=== PATIENT | female | born 1945 | race American Indian/Alaskan Native ===

== ENCOUNTER 2020-03-17 14:06 | Observation (INO) | payer MEDICARE ==
[2020-03-17] MEDS ORDERED: SODIUM CHLORIDE 0.9% 1000 ML 1,000 ML IV ONE (15:06)
[2020-03-17 15:37] LABS: Basophils % (Auto) 0.2 % (0.0-1.8); Eosinophils % (Auto) 0.1 % (0.0-4.3); Hemoglobin 12.9 gm/dl (10.1-14.3); Lymphocytes % (Auto) 7.2 % (13.4-35.0); Mean Corpuscular HGB Conc 34 % (30-34); Mean Corpuscular Volume 83 fl (79-97); Monocytes % (Auto) 6.7 % (0.0-7.3); Platelet Count 298 K/mm3 (140-440); Red Blood Count 4.59 M/mm3 (3.65-5.03); Red Cell Distribution Width 14.2 % (13.2-15.2)
--- NOTE | 2020-03-17 15:45 | XRay Report ---
CHEST 1 VIEW 03/17/2020 3:29 PM INDICATION / CLINICAL INFORMATION: weakness. COMPARISON: None available. FINDINGS: SUPPORT DEVICES: None. HEART / MEDIASTINUM: No significant abnormality. LUNGS / PLEURA: No significant pulmonary or pleural abnormality. No pneumothorax. ADDITIONAL FINDINGS: No significant additional findings. IMPRESSION: 1. No acute findings. Signer Name: Tristen Burgess MD Signed: 03/17/2020 3:40 PM Workstation Name: [email or web address] [id number]
[2020-03-17 16:02] LABS: Blood Urea Nitrogen 19 mg/dL (7-17); Calcium 8.9 mg/dL (8.4-10.2); Hemolysis Index 43
[2020-03-17 16:13] LABS: BUN/Creatinine Ratio 27
[2020-03-17] MEDS ORDERED: POTASSIUM CHLORIDE ER 20 MEQ TAB PO ONE (16:25)
[2020-03-17 17:08] LABS: Bacteria,Urine 1+ /HPF (Negative); Bilirubin,Urine NEG (Negative); Blood,Urine SM (Negative); Color,Urine Yellow (Yellow); Hyaline Casts,Urine 4 /LPF; Mucus,Urine 3+ /HPF
[2020-03-17 17:09] LABS: WBC,Urine > 182.0 /HPF (0.0-6.0)
--- NOTE | 2020-03-17 17:44 | Emergency Department Report ---
ED General Adult HPI - General Chief complaint: Medical Clearance Stated complaint: Hypotension Time Seen by Provider: 03/17/20 14:28 Source: EMS Mode of arrival: Stretcher Limitations: Altered Mental Status - History of Present Illness Initial comments: 74-year-old female, history of CVA with left-sided weakness, dementia, diabetes, orthostatic hypotension, presents to the ED for evaluation. [facility] with reported tachycardia and hypotension. [facility] paperwork states that patient has been exposed to COVID. Vitals are currently normal here in ED. Patient is nonverbal, but shakes her head yes and no. Patient denies any chest pain, shortness of breath, vomiting, abdominal pain, diarrhea, cough. Answers may not be reliable given history of dementia. -: This afternoon Severity scale (0 -10): 0 Associated Symptoms: denies other symptoms - Related Data Allergies Allergy/AdvReac Type Severity Reaction Status Date / Time No Known Allergies Allergy Unverified 03/17/20 18:03 ED Review of Systems ROS: Stated complaint: COVID 19 POSITIVE Other details as noted in HPI Comment: All other systems reviewed and negative Respiratory: denies: shortness of breath Cardiovascular: denies: chest pain Gastrointestinal: denies: abdominal pain ED Physical Exam - General Limitations: Altered Mental Status General appearance: alert, in no apparent distress - Head Head exam: Present: atraumatic, normocephalic - Eye Eye exam: Present: normal appearance, EOMI - ENT ENT exam: Present: mucous membranes moist - Neck Neck exam: Present: normal inspection - Respiratory Respiratory exam: Present: normal lung sounds bilaterally. Absent: respiratory distress - Cardiovascular Cardiovascular Exam: Present: normal rhythm, tachycardia - GI/Abdominal GI/Abdominal exam: Present: soft. Absent: distended, tenderness - Extremities Exam Extremities exam: Present: normal inspection - Neurological Exam Neurological exam: Present: alert, other (Shakes head yes and no; patient is nonverbal) - Psychiatric Psychiatric exam: Present: normal affect, normal mood - Skin Skin exam: Present: warm, dry, intact, normal color ED Course Vital Signs 03/17/20 03/17/20 03/17/20 14:45 14:53 15:00 Temperature 98.3 F Pulse Rate 110 H 78 109 H Respiratory 15 16 22 Rate Blood Pressure Blood Pressure 144/74 [Right] O2 Sat by Pulse 100 98 99 Oximetry 03/17/20 03/17/20 03/17/20 15:16 15:30 15:46 Temperature Pulse Rate 109 H 108 H 108 H Respiratory 15 12 14 Rate Blood Pressure Blood Pressure [Right] O2 Sat by Pulse 98 98 99 Oximetry 03/17/20 03/17/20 03/17/20 16:00 16:16 16:30 Temperature Pulse Rate 104 H 104 H 100 H Respiratory 17 25 H 20 Rate Blood Pressure Blood Pressure [Right] O2 Sat by Pulse 99 98 97 Oximetry 03/17/20 03/17/20 03/17/20 16:46 17:00 17:16 Temperature Pulse Rate 102 H 110 H 110 H Respiratory 24 19 14 Rate Blood Pressure Blood Pressure [Right] O2 Sat by Pulse 95 97 98 Oximetry 03/17/20 03/17/20 17:30 17:46 Temperature Pulse Rate 111 H 117 H Respiratory 12 15 Rate Blood Pressure 181/72 Blood Pressure [Right] O2 Sat by Pulse Oximetry ED Medical Decision Making - Lab Data Result diagrams: 03/17/20 15:18 03/17/20 15:18 - EKG Data -: EKG Interpreted by [place] EKG shows normal: sinus rhythm, axis, intervals, QRS complexes, ST-T waves Rate: tachycardia (rate 116) - Radiology Data Radiology results: report reviewed, image reviewed - Medical Decision Making 74-year-old female [facility] for hypotension and tachycardia. Patient has not been hypotensive here in the ED. Patient has been tachycardic here in the ED. Chest x-ray is negative for any acute findings. Patient does have elevated white count of 14.2. UA shows evidence of UTI with positive nit rite, greater than 182 WBCs, 1+ bacteria. Lactic acid only 2.1, however patient has been given 30/kg IV fluid bolus. Patient given Levaquin here in the ED. Urine culture ordered. Patient appears alert, in no distress. Will admit to hospitalist, Dr Powell, for further management. - Differential Diagnosis UTI, pneumonia, dehydration Critical care attestation.: If time is entered above; I have spent that time in minutes in the direct care of this critically ill patient, excluding procedure time. ED Disposition Clinical Impression: UTI (urinary tract infection), Hypokalemia, Sepsis Disposition: OP ADMIT IP TO THIS HOSP Is pt being admited?: Yes Condition: Stable Time of Disposition: 18:54
[2020-03-17] MEDS ORDERED: SODIUM CHLORIDE 0.9% 1000 ML IV SOLN IV ONE (18:48)
[2020-03-17] MEDS ORDERED: SODIUM CHLORIDE 0.9% 500 ML 500 ML ONE (19:34)
--- NOTE | 2020-03-18 08:14 | History and Physical Report ---
History of Present Illness Date of examination: 03/17/20 Date of admission: 03/17/20 18:56 Chief complaint: Low blood pressure as per [facility] History of present illness: 74-year-old female with history of cerebrovascular accident and left-sided weakness, dementia and diabetes [facility] for low blood pressure and fast heart rate. No fever. There is apparent exposure to cold. Patient does not have any cough constitutional no weight loss or weight gain no fever or chills. No shortness of breath or chest pain. In the emergency room her blood pressure was in the normal range. She was slightly tachycardic with a heart rate of 100 to 110. No temperature. Past History Past Medical History: diabetes, stroke (With left-sided weakness), other (Dementia) Past Surgical History: Other (Unavailable) Social history: full code, other (Lives in [facility]) Family history: hypertension Medications and Allergies Allergies Allergy/AdvReac Type Severity Reaction Status Date / Time No Known Allergies Allergy Unverified 03/17/20 18:03 Review of Systems All systems: negative Constitutional: weakness Breasts: no deferred Cardiovascular: no chest pain, no orthopnea, no palpitations Respiratory: no cough, no cough with sputum, no excessive sputum Gastrointestinal: no abdominal pain, no nausea, no vomiting Genitourinary Female: dysuria, urinary frequency, urgency, no dyspareunia, no dysmenorrhea Rectal: no pain Musculoskeletal: no neck stiffness, no neck pain, no shooting arm pain Integumentary: no rash, no pruritis, no redness Neurological: no seizures, no syncope Psychiatric: no anxiety, no memory loss, no change in sleep habits Endocrine: no cold intolerance, no heat intolerance, no polyphagia, no excessive thirst, no polydipsia Hematologic/Lymphatic: no easy bruising, no easy bleeding Allergic/Immunologic: no urticaria, no allergic rhinitis, no wheezing Exam - Constitutional Vitals: Temp Pulse Resp BP Pulse Ox 97.6 F 98 H 18 167/88 99 03/18/20 04:38 03/18/20 04:38 03/18/20 04:38 03/18/20 04:38 03/18/20 04:38 General appearance: Present: no acute distress, well-nourished - EENT Eyes: Present: PERRL ENT: hearing intact, clear oral mucosa - Neck Neck: Present: supple, normal ROM - Respiratory Respiratory effort: normal Respiratory: bilateral: CTA - Cardiovascular Rhythm: regular Heart Sounds: Present: S1 & S2. Absent: rub, click - Extremities Extremities: pulses symmetrical, No edema Peripheral Pulses: within normal limits - Abdominal General gastrointestinal: Present: soft, non-tender, non-distended, normal bowel sounds Female genitourinary: Present: normal - Integumentary Integumentary: Present: clear, warm, dry - Musculoskeletal Musculoskeletal: gait normal, strength equal bilaterally - Psychiatric Psychiatric: appropriate mood/affect, intact judgment & insight - Neurologic Neurologic: CNII-XII intact, moves all extremities Results - Labs CBC & Chem 7: 03/17/20 15:18 03/17/20 15:18 Labs: Laboratory Last Values WBC 14.2 K/mm3 (4.5-11.0) H 03/17/20 15:18 RBC 4.59 M/mm3 (3.65-5.03) 03/17/20 15:18 Hgb 12.9 gm/dl (10.1-14.3) 03/17/20 15:18 Hct 38.0 % (30.3-42.9) 03/17/20 15:18 MCV 83 fl (79-97) 03/17/20 15:18 MCH 28 pg (28-32) 03/17/20 15:18 MCHC 34 % (30-34) 03/17/20 15:18 RDW 14.2 % (13.2-15.2) 03/17/20 15:18 Plt Count 298 K/mm3 (140-440) 03/17/20 15:18 Lymph % (Auto) 7.2 % (13.4-35.0) L 03/17/20 15:18 [place] % (Auto) 6.7 % (0.0-7.3) 03/17/20 15:18 Eos % (Auto) 0.1 % (0.0-4.3) 03/17/20 15:18 Baso % (Auto) 0.2 % (0.0-1.8) 03/17/20 15:18 Lymph # 1.0 K/mm3 (1.2-5.4) L 03/17/20 15:18 [place] # 1.0 K/mm3 (0.0-0.8) H 03/17/20 15:18 Eos # 0.0 K/mm3 (0.0-0.4) 03/17/20 15:18 Baso # 0.0 K/mm3 (0.0-0.1) 03/17/20 15:18 Seg Neutrophils % 85.8 % (40.0-70.0) H 03/17/20 15:18 Seg Neutrophils # 12.2 K/mm3 (1.8-7.7) H 03/17/20 15:18 Sodium 138 mmol/L (137-145) 03/17/20 15:18 Potassium 3.3 mmol/L (3.6-5.0) L 03/17/20 15:18 Chloride 99.6 mmol/L (98-107) 03/17/20 15:18 Carbon Dioxide 25 mmol/L (22-30) 03/17/20 15:18 Anion Gap 17 mmol/L 03/17/20 15:18 BUN 19 mg/dL (7-17) H 03/17/20 15:18 Creatinine 0.7 mg/dL (0.6-1.2) 03/17/20 15:18 Estimated GFR > 60 ml/min 03/17/20 15:18 BUN/Creatinine Ratio 27 % 03/17/20 15:18 Glucose 188 mg/dL (65-100) H 03/17/20 15:18 Lactic Acid 1.00 mmol/L (0.7-2.0) 03/18/20 02:00 Calcium 8.9 mg/dL (8.4-10.2) 03/17/20 15:18 Urine Color Yellow (Yellow) 03/17/20 16:49 Urine Turbidity Cloudy (Clear) 03/17/20 16:49 Urine pH 5.0 (5.0-7.0) 03/17/20 16:49 Ur Specific [place] 1.021 (1.003-1.030) 03/17/20 16:49 Urine Protein 30 mg/dl mg/dL (Negative) 03/17/20 16:49 Urine Glucose (UA) 50 mg/dL (Negative) 03/17/20 16:49 Urine Ketones Tr mg/dL (Negative) 03/17/20 16:49 Urine Blood Sm (Negative) 03/17/20 16:49 Urine Nitrite Pos (Negative) 03/17/20 16:49 Urine Bilirubin Neg (Negative) 03/17/20 16:49 Urine Urobilinogen 4.0 mg/dL (<2.0) 03/17/20 16:49 Ur Leukocyte Esterase Lg (Negative) 03/17/20 16:49 Urine WBC (Auto) > 182.0 /HPF (0.0-6.0) H 03/17/20 16:49 Urine RBC (Auto) 5.0 /HPF (0.0-6.0) 03/17/20 16:49 U Epithel Cells (Auto) 4.0 /HPF (0-13.0) 03/17/20 16:49 Urine Bacteria (Auto) 1+ /HPF (Negative) 03/17/20 16:49 Urine WBC Clumps 2+ /HPF 03/17/20 16:49 Hyaline Casts 4 /LPF 03/17/20 16:49 Urine Mucus 3+ /HPF 03/17/20 16:49 Urine Yeast (Budding) 2+ /HPF 03/17/20 16:49 - Imaging and Cardiology EKG: report reviewed Chest x-ray: report reviewed Nelson/IV: Voiding Method Diaper IV Catheter Type [Left Forearm INT / Saline Lock ] Assessment and Plan Advance Directives: Yes (Full code) - Patient Problems (1) Sepsis Current Visit: Yes Status: Acute Plan to address problem: Sepsis on admission Patient is a tachycardia and elevated lactic acid and a high white count IV fluids and IV antibiotics for now (2) Hypokalemia Current Visit: Yes Status: Acute Plan to address problem: Supplemented (3) UTI (urinary tract infection) Current Visit: Yes Status: Acute Qualifiers: Urinary tract infection type: acute cystitis Plan to address problem: Patient initiated on IV Rocephin (4) Type 2 diabetes mellitus Current Visit: Yes Status: Chronic Qualifiers: Diabetes mellitus 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
[2020-03-18] MEDS ORDERED: MORPHINE 2 MG/1 ML INJ IV PRN (08:15)
[2020-03-18] MEDS ORDERED: ONDANSETRON 4 MG/2 ML INJ IV PRN (08:15)
[2020-03-18] MEDS ORDERED: ACETAMINOPHEN 325 MG TAB PO PRN (08:15)
[2020-03-18] MEDS ORDERED: METOCLOPRAMIDE 10 MG/2 ML INJ IV PRN (08:15)
[2020-03-18] MEDS: cefTRIAXone/NS 2 GM/100 ML 2 GM/100 ML BAG IV SCH (09:28)
[2020-03-18] MEDS: FAMOTIDINE 20 MG/2 ML INJ IV SCH ×2 (09:28→22:05)
[2020-03-18] MEDS: D5W/0.9% NACL 1,000 ML IV SCH ×2 (09:31→22:06)
[2020-03-18 12:23] LABS: Hematocrit 32.7 % (30.3-42.9); Mean Corpuscular HGB Conc 34 % (30-34); Mean Corpuscular Volume 83 fl (79-97); Platelet Count 286 K/mm3 (140-440); Red Blood Count 3.96 M/mm3 (3.65-5.03); Red Cell Distribution Width 13.7 % (13.2-15.2)
[2020-03-18 12:45] LABS: Alanine Aminotransferase 37 units/L (7-56); Albumin 2.4 g/dL (3.9-5); BUN/Creatinine Ratio 33; Blood Urea Nitrogen 10 mg/dL (7-17); Calcium 8.3 mg/dL (8.4-10.2); Hemolysis Index 4
[2020-03-18] MEDS: INSULIN LISPRO 100 UNIT/ML VIAL 3 mL SUB-Q SCH ×3 (13:09→22:06)
[2020-03-18 13:29] LABS: Basophils % (Manual) 0 % (0.0-1.8); Platelet Estimate Consistent w Auto; Total Cells Counted 100
[2020-03-18] MEDS ORDERED: hydrALAZINE 20 MG/1 ML INJ IV PRN (19:21)
--- NOTE | 2020-03-18 22:23 | Progress Note ---
Assessment and Plan - Patient Problems (1) COVID-19 determined by clinical diagnostic criteria Current Visit: Yes Status: Acute Plan to address problem: Barr virus positive Not hypoxic (2) Sepsis Current Visit: Yes Status: Acute Plan to address problem: Sepsis on admission Patient is a tachycardia and elevated lactic acid and a high white count IV fluids and IV antibiotics for now (3) Hypokalemia Current Visit: Yes Status: Acute Plan to address problem: Supplemented (4) UTI (urinary tract infection) Current Visit: Yes Status: Acute Qualifiers: Urinary tract infection type: acute cystitis Plan to address problem: Patient initiated on IV Rocephin (5) Type 2 diabetes mellitus Current Visit: Yes Status: Chronic 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 No fever. There is apparent exposure to cold. Patient does not have any cough constitutional no weight loss or weight gain no fever or chills. No shortness of breath or chest pain. In the emergency room her blood pressure was in the normal range. She was slightly tachycardic with a heart rate of 100 to 110. No temperature. Symptomatically better Objective - Constitutional Vitals: Vital Signs - 12hr 03/18/20 03/18/20 03/18/20 16:37 19:12 22:05 Temperature 98.5 F 97.2 F L Pulse Rate 94 H 92 H 92 H Respiratory 18 18 Rate Blood Pressure 158/74 200/95 164/93 O2 Sat by Pulse 98 97 Oximetry General appearance: Present: no acute distress, well-nourished - EENT Eyes: PERRL, EOM intact ENT: hearing intact, clear oral mucosa Ears: bilateral: normal - Neck Neck: supple, normal ROM - Respiratory Respiratory effort: normal Respiratory: bilateral: CTA - Breasts Breasts: normal - Cardiovascular Rhythm: regular Heart Sounds: Present: S1 & S2. Absent: gallop, rub Extremities: pulses intact, No edema, normal color, Full ROM - Gastrointestinal General gastrointestinal: Present: soft, non-tender, non-distended, normal bowel sounds - Genitourinary Female genitourinary: normal - Integumentary Integumentary: clear, warm, dry - Musculoskeletal Musculoskeletal: 1, strength equal bilaterally - Neurologic Neurologic: moves all extremities - Psychiatric Psychiatric: memory intact, appropriate mood/affect, intact judgment & insight - Labs CBC & Chem 7: 03/19/20 06:24 03/19/20 19:03 Labs: Abnormal lab results 03/18/20 03/18/20 03/18/20 Range/Units 10:27 11:18 11:18 Seg Neuts % (Manual) 80.0 H (40.0-70.0) % Lymphocytes % (Manual) 10.0 L (13.4-35.0) % Monocytes % (Manual) 9.0 H (0.0-7.3) % Lymphocytes # (Manual) 0.9 L (1.2-5.4) K/mm3 Potassium 3.1 L (3.6-5.0) mmol/L Creatinine 0.3 L D (0.6-1.2) mg/dL Glucose 140 H (65-100) mg/dL POC Glucose 116 H (70-105) Hemoglobin A1c (4-6) % Calcium 8.3 L (8.4-10.2) mg/dL Total Protein 5.9 L (6.3-8.2) g/dL Albumin 2.4 L (3.9-5) g/dL 03/18/20 03/18/20 03/18/20 Range/Units 11:18 16:53 20:50 Seg Neuts % (Manual) (40.0-70.0) % Lymphocytes % (Manual) (13.4-35.0) % Monocytes % (Manual) (0.0-7.3) % Lymphocytes # (Manual) (1.2-5.4) K/mm3 Potassium (3.6-5.0) mmol/L Creatinine (0.6-1.2) mg/dL Glucose (65-100) mg/dL POC Glucose 224 H 117 H (70-105) Hemoglobin A1c 6.5 H (4-6) % Calcium (8.4-10.2) mg/dL Total Protein (6.3-8.2) g/dL Albumin (3.9-5) g/dL
[2020-03-19] MEDS: D5W/0.9% NACL 1,000 ML IV SCH ×3 (05:12→18:37)
[2020-03-19 07:30] LABS: Basophils # (Auto) 0.1 K/mm3 (0.0-0.1); Basophils % (Auto) 0.8 % (0.0-1.8); Eosinophils % (Auto) 0.6 % (0.0-4.3); Hematocrit 30.3 % (30.3-42.9); Hemoglobin 10.2 gm/dl (10.1-14.3); Lymphocytes # (Auto) 1.3 K/mm3 (1.2-5.4); Lymphocytes % (Auto) 18.9 % (13.4-35.0); Mean Corpuscular HGB Conc 34 % (30-34); Mean Corpuscular Volume 82 fl (79-97); Monocytes # (Auto) 0.6 K/mm3 (0.0-0.8); Platelet Count 278 K/mm3 (140-440); Red Blood Count 3.69 M/mm3 (3.65-5.03); Red Cell Distribution Width 13.7 % (13.2-15.2)
[2020-03-19 07:50] LABS: Alanine Aminotransferase 40 units/L (7-56); Albumin 2.6 g/dL (3.9-5); Blood Urea Nitrogen 6 mg/dL (7-17); Calcium 7.9 mg/dL (8.4-10.2); Hemolysis Index 0
[2020-03-19 07:51] LABS: BUN/Creatinine Ratio 20
[2020-03-19] MEDS ORDERED: POTASSIUM CHLORIDE ER 20 MEQ TAB PO ONE ×2 (10:00→14:00)
[2020-03-19] MEDS: cefTRIAXone/NS 2 GM/100 ML 2 GM/100 ML BAG IV SCH (10:53)
[2020-03-19] MEDS: FAMOTIDINE 20 MG/2 ML INJ IV SCH ×2 (10:53→23:24)
[2020-03-19] MEDS: INSULIN LISPRO 100 UNIT/ML VIAL 3 mL SUB-Q SCH ×4 (10:53→23:23)
[2020-03-20] MEDS: D5W/0.9% NACL 1,000 ML IV SCH (04:44)
--- NOTE | 2020-03-20 06:50 | Progress Note ---
Assessment and Plan - Patient Problems (1) COVID-19 determined by clinical diagnostic criteria Current Visit: Yes Status: Acute Plan to address problem: Barr virus positive Not hypoxic No chest x-ray infiltrate (2) Sepsis Current Visit: Yes Status: Acute Plan to address problem: Sepsis on admission Patient is a tachycardia and elevated lactic acid and a high white count IV fluids and IV antibiotics for now (3) Hypokalemia Current Visit: Yes Status: Acute Plan to address problem: Supplemented Recheck potassium 3.4 (4) UTI (urinary tract infection) Current Visit: Yes Status: Acute Qualifiers: Urinary tract infection type: acute cystitis Plan to address problem: Patient initiated on IV Rocephin (5) Type 2 diabetes mellitus Current Visit: Yes Status: Chronic 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 Plan to address problem: Coverage for now and check hemoglobin A1c (6) DVT prophylaxis Current Visit: Yes Status: Acute Plan to address problem: On heparin and GI prophylaxis (7) Discharge planning issues Current Visit: Yes Status: Acute Plan to address problem: Possible discharge in the next 24 to 48 hours Physical therapy ordered Subjective Date of service: 03/19/20 Principal diagnosis: Sepsis, covid positive Interval history: 74-year-old female with history of cerebrovascular accident and left-sided weakness, dementia and diabetes sent from [facility] for low blood pressure and fast heart rate. No fever. There is apparent exposure to cold. Patient does not have any cough constitutional no weight loss or weight gain no fever or chills. No shortness of breath or chest pain. In the emergency room her blood pressure was in the normal range. She was slightly tachycardic with a heart rate of 100 to 110. No temperature. Symptomatically better Objective - Constitutional Vitals: Vital Signs - 12hr 03/19/20 03/20/20 22:30 05:28 Temperature 97.5 F L 98.8 F Pulse Rate 99 H 92 H Respiratory 20 20 Rate Blood Pressure 150/91 O2 Sat by Pulse 94 95 Oximetry General appearance: Present: no acute distress, well-nourished - EENT Eyes: PERRL, EOM intact ENT: hearing intact, clear oral mucosa Ears: bilateral: normal - Neck Neck: supple, normal ROM - Respiratory Respiratory effort: normal Respiratory: bilateral: CTA - Breasts Breasts: normal - Cardiovascular Heart rate: 78 Rhythm: regular Heart Sounds: Present: S1 & S2. Absent: gallop, rub Extremities: no ischemia, pulses intact, No edema, normal color, Full ROM - Gastrointestinal General gastrointestinal: Present: soft, non-tender, non-distended, normal bowel sounds - Genitourinary Female genitourinary: normal - Integumentary Integumentary: clear, warm, dry - Musculoskeletal Musculoskeletal: 1, strength equal bilaterally - Neurologic Neurologic: moves all extremities - Psychiatric Psychiatric: memory intact, appropriate mood/affect, intact judgment & insight - Labs CBC & Chem 7: 03/19/20 06:24 03/19/20 19:03 Labs: Abnormal lab results 03/18/20 03/19/20 03/19/20 Range/Units Unknown 06:24 06:24 [place] % (Auto) 9.0 H (0.0-7.3) % Seg Neutrophils % 70.7 H (40.0-70.0) % Potassium 2.9 L* (3.6-5.0) mmol/L Chloride 107.1 H (98-107) mmol/L BUN 6 L (7-17) mg/dL Creatinine 0.3 L (0.6-1.2) mg/dL Glucose 179 H (65-100) mg/dL POC Glucose (70-105) Calcium 7.9 L (8.4-10.2) mg/dL Total Protein 5.2 L (6.3-8.2) g/dL Albumin 2.6 L (3.9-5) g/dL Coronavirus (PCR) Positive A (Negative) 03/19/20 03/19/20 03/19/20 Range/Units 09:32 12:59 17:18 [place] % (Auto) (0.0-7.3) % Seg Neutrophils % (40.0-70.0) % Potassium (3.6-5.0) mmol/L Chloride (98-107) mmol/L BUN (7-17) mg/dL Creatinine (0.6-1.2) mg/dL Glucose (65-100) mg/dL POC Glucose 155 H 155 H 151 H (70-105) Calcium (8.4-10.2) mg/dL Total Protein (6.3-8.2) g/dL Albumin (3.9-5) g/dL Coronavirus (PCR) (Negative) 03/19/20 03/19/20 Range/Units 19:03 22:42 [place] % (Auto) (0.0-7.3) % Seg Neutrophils % (40.0-70.0) % Potassium 3.4 L (3.6-5.0) mmol/L Chloride (98-107) mmol/L BUN (7-17) mg/dL Creatinine (0.6-1.2) mg/dL Glucose (65-100) mg/dL POC Glucose 125 H (70-105) Calcium (8.4-10.2) mg/dL Total Protein (6.3-8.2) g/dL Albumin (3.9-5) g/dL Coronavirus (PCR) (Negative)
[2020-03-20 07:49] LABS: Basophils # (Auto) 0.1 K/mm3 (0.0-0.1); Basophils % (Auto) 1.1 % (0.0-1.8); Eosinophils % (Auto) 0.7 % (0.0-4.3); Hemoglobin 10.3 gm/dl (10.1-14.3); Lymphocytes # (Auto) 1.4 K/mm3 (1.2-5.4); Lymphocytes % (Auto) 22.4 % (13.4-35.0); Mean Corpuscular HGB Conc 34 % (30-34); Mean Corpuscular Volume 81 fl (79-97); Monocytes # (Auto) 0.5 K/mm3 (0.0-0.8); Monocytes % (Auto) 8.4 % (0.0-7.3); Platelet Count 278 K/mm3 (140-440); Red Cell Distribution Width 13.5 % (13.2-15.2)
[2020-03-20 08:09] LABS: Alanine Aminotransferase 47 units/L (7-56); Albumin 2.5 g/dL (3.9-5); Blood Urea Nitrogen 2 mg/dL (7-17); Calcium 7.7 mg/dL (8.4-10.2); Hemolysis Index 1
[2020-03-20 08:14] LABS: BUN/Creatinine Ratio 7
[2020-03-20] MEDS: INSULIN LISPRO 100 UNIT/ML VIAL 3 mL SUB-Q SCH ×3 (09:38→17:45)
[2020-03-20] MEDS: FAMOTIDINE 20 MG/2 ML INJ IV SCH (09:40)
[2020-03-20] MEDS: cefTRIAXone/NS 2 GM/100 ML 2 GM/100 ML BAG IV SCH (09:40)
[2020-03-20] MEDS ORDERED: LOSARTAN 25 MG TAB PO SCH (10:00)
[2020-03-20] MEDS ORDERED: POTASSIUM CHLORIDE ER 20 MEQ TAB PO NR (10:30)
[2020-03-20] MEDS: POTASSIUM CHLORIDE 10 MEQ 10 MEQ/100 ML BAG IV SCH ×2 (11:41→13:12)
[2020-03-20] MEDS ORDERED: METOCLOPRAMIDE 10 MG/2 ML INJ IV PRN (12:00)
[2020-03-20 13:41] VITALS: BP 179/83
[2020-03-20] MEDS ORDERED: LIDOCAINE-MPF (1%) 10 MG/1 ML VIAL 5 ML INFILTRATI ONE (14:47)
--- NOTE | 2020-03-20 14:48 | Discharge Summary ---
Providers - Providers Date of Admission: 03/17/20 18:56 Date of discharge: 03/20/20 Attending physician: YO VALENTIN Primary care physician: YO VALENTIN Hospitalization Condition: Stable Hospital course: Patient 74-year-old with a history of CVA left-sided weakness dementia hypertension presented to ED hypotensive tachycardic. Patient found to be septic secondary to Kovic pneumonia. Patient had increased leukocytosis increased lactic acid which is since been treated. Patient was diagnosed with hyperkalemia which resolved patient also had a urinary tract infection treated with Rocephin. And also had uncontrolled hypertension which is much improved now. Patient is stable enough to go back to senior living under continued isolation for a completion of 14 days. Disposition: [id number]/[id number] [facility] - Discharge Diagnoses (1) COVID-19 determined by clinical diagnostic criteria Status: Acute (2) DVT prophylaxis Status: Acute (3) Hypokalemia Status: Acute (4) Sepsis Status: Acute (5) UTI (urinary tract infection) Status: Acute Qualifiers: Urinary tract infection type: acute cystitis (6) Type 2 diabetes mellitus Status: Chronic Qualifiers: Diabetes mellitus detention insulin use: unspecified detention insulin use status Core Measure Documentation - Palliative Care Palliative Care/ Comfort Measures: Not Applicable - Core Measures Any of the following diagnoses?: none Exam - Constitutional Vitals: Temp Pulse Resp BP Pulse Ox 99.1 F 88 18 179/83 97 03/20/20 11:58 03/20/20 11:58 03/20/20 11:58 03/20/20 11:58 03/20/20 11:58 General appearance: Present: no acute distress, well-nourished, disheveled - EENT Eyes: Present: PERRL ENT: hearing intact, clear oral mucosa - Neck Neck: Present: supple, normal ROM - Respiratory Respiratory effort: normal Respiratory: bilateral: CTA - Cardiovascular Heart Sounds: Present: S1 & S2. Absent: rub, click - Extremities Extremities: pulses symmetrical, No edema Peripheral Pulses: within normal limits - Abdominal General gastrointestinal: Present: soft, non-tender, non-distended, normal bowel sounds Female genitourinary: Present: normal - Integumentary Integumentary: Present: clear, warm, dry - Musculoskeletal Musculoskeletal: gait normal, strength equal bilaterally - Psychiatric Psychiatric: appropriate mood/affect, intact judgment & insight - Neurologic Neurologic: CNII-XII intact, moves all extremities Plan Activity: fall precautions Weight Bearing Status: Non-Weight Bearing Diet: diabetic Follow up with: YO VALENTIN MD [Primary Care Provider] - 7 Days
[2020-03-20] MEDS ORDERED: FAMOTIDINE 10 MG TAB PO SCH (22:00)
== END 2020-03-20 17:40 ==
LOC: ED 14:06 → 4A 18:56 → 3A 03-19 21:07
PROVIDERS: ADMIT Internal Medicine; ATTEND Internal Medicine
DX: U07.1 COVID-19 (principal); E87.6 Hypokalemia; A41.9 Sepsis, unspecified organism; N39.0 Urinary tract infection, site not specified; E11.9 Type 2 diabetes mellitus without complications; F03.90 Unspecified dementia, unspecified severity, without behavioral disturbance, psychotic disturbance, mood disturbance, and anxiety; I69.354 Hemiplegia and hemiparesis following cerebral infarction affecting left non-dominant side; Z79.899 Other long term (current) drug therapy
CPT/HCPCS: 36415; 71045; 80048; 80053; 81001; 82140; 82962; 83036; 84132; 85025; 87086; 93005; 96361; 96365; 96366; 96367; 96375; 96376; 99285; G0378; J0360; J0696; J1956; J3480; J7030; J7040; J7042; U0003; 85007